=== PATIENT | male | born 1990 | race Caucasian/White ===

== ENCOUNTER 2020-05-12 14:23 | Emergency (ER) | payer OTHER ==
[~2020-05-12] VITALS: Ht 182.9 cm; Wt 117.9 kg
[2020-05-12 15:21] VITALS: BP 160/95
== END 2020-05-12 15:21 | disposition home or self-care (01) ==
LOC: ED 14:23
DX: S39.012A Strain of muscle, fascia and tendon of lower back, initial encounter (principal); X58.XXXA Exposure to other specified factors, initial encounter; Y93.89 Activity, other specified; Y92.89 Other specified places as the place of occurrence of the external cause; Y99.8 Other external cause status
CPT/HCPCS: J1885

== ENCOUNTER 2020-05-16 12:59 | Emergency (ER) | payer OTHER ==
[~2020-05-16] VITALS: Ht 182.9 cm; Wt 117.9 kg
[2020-05-16 13:21] VITALS: Ht 182.9 cm; Wt 117.9 kg
[2020-05-16 14:45] VITALS: BP 161/116
== END 2020-05-16 14:45 | disposition home or self-care (01) ==
LOC: ED 12:59
DX: S39.012A Strain of muscle, fascia and tendon of lower back, initial encounter (principal); X58.XXXA Exposure to other specified factors, initial encounter; Y93.89 Activity, other specified; Y92.89 Other specified places as the place of occurrence of the external cause; Y99.8 Other external cause status
CPT/HCPCS: J1885